=== PATIENT | male | born 1990 | race Two or more races ===

== ENCOUNTER 2019-06-03 13:01 | Emergency (ER) | payer MEDICAID ==
[~2019-06-03] VITALS: Ht 180.3 cm; Wt 68.0 kg
[2019-06-03 13:58] LABS: BASOPHILS % 0.5 % (0.0-2.0); EOSINOPHILS % 0.1 % (0.0-5.0); HEMATOCRIT. 27.9 % (42.0-52.0); LYMPHOCYTES % 20.7 % (20.0-50.0); MEAN CORPUSCULAR HEMOGLOBIN 35.9 pg (28.0-32.0); MEAN CORPUSCULAR VOLUME 100.8 fL (80.0-94.0); MEAN PLATELET VOLUME 8.6 fl (7.4-10.4); MONOCYTES % 5.5 % (2.0-8.0); NEUTROPHILS % 73.2 % (40.0-76.0); PLATELET 78 x1000/uL (130-400); RED BLOOD CELL COUNT 2.77 mill/uL (4.7-6.1); RED CELL DISTRIBUTION WIDTH 15.4 % (11.6-14.6)
[2019-06-03 14:02] LABS: CHLORIDE 97 mEq/L (98-107)
[2019-06-03 14:06] LABS: ETHANOL BLOOD < 10 mg/dL
[2019-06-03 15:03] LABS: CLARITY URINE CLEAR (CLEAR); COLOR URINE DARK YELLOW (YELLOW); KETONES URINE TRACE (NEGATIVE); LEUKOCYTE ESTERASE URINE TRACE (NEGATIVE); NITRITE URINE POSITIVE (NEGATIVE); OCCULT BLOOD URINE NEGATIVE (NEGATIVE); PH URINE 6.5 (4.5-8.0); PROTEIN URINE 1+ (NEGATIVE); SPECIFIC GRAVITY URINE 1.023 (1.005-1.030)
[2019-06-03 15:37] LABS: *BARBITURATES SCREEN URINE NEGATIVE (NEGATIVE); *BENZODIAZEPINES SCREEN URINE NEGATIVE (NEGATIVE)
[2019-06-03 15:38] LABS: *AMPHETAMINES SCREEN URINE NEGATIVE (NEGATIVE); *COCAINE SCREEN URINE NEGATIVE (NEGATIVE); METHADONE URINE SCREEN NEGATIVE (NEGATIVE); OPIATES URINE SCREEN NEGATIVE (NEGATIVE); PHENCYCLIDINE URINE SCREEN NEGATIVE (NEGATIVE)
[2019-06-03 15:44] LABS: CANNABINOID URINE SCREEN NEGATIVE (NEGATIVE)
[2019-06-03] MEDS ORDERED: CHLORDIAZEPOXIDE 25MG CAPSULE PO ONE (16:45)
[2019-06-03 17:00] VITALS: BP 140/90
== END 2019-06-03 17:15 | disposition home or self-care (01) ==
LOC: ER 13:01
DX: G40.909 Epilepsy, unspecified, not intractable, without status epilepticus (principal)
CPT/HCPCS: 36415; 70450; 80053; 80305; 80320; 81003; 85025; 99284; Z7610; G0480

== ENCOUNTER 2019-06-03 17:39 | Emergency (ER) | payer MEDICAID ==
[~2019-06-03] VITALS: Ht 170.2 cm; Wt 68.0 kg
[2019-06-03 17:45] VITALS: BP 136/100
[2019-06-03] MEDS ORDERED: SODIUM CHLORIDE 0.9% 1,000 ML IV ONE (17:54)
[2019-06-03] MEDS ORDERED: LEVETIRACETAM 1000MG/100ML 100 ML IV ONE (18:00)
[2019-06-03] MEDS ORDERED: LORAZEPAM 2MG/ML CPJ IV ONE (18:15)
[2019-06-03] MEDS ORDERED: CEFTRIAXONE 1 G PREMIX 50 ML IV ONE (18:15)
[2019-06-03 19:27] LABS: BASOPHILS % 0.5 % (0.0-2.0); EOSINOPHILS % 0.1 % (0.0-5.0); HEMATOCRIT. 28.2 % (42.0-52.0); HEMOGLOBIN. 9.9 g/dL (14.0-18.0); LYMPHOCYTES % 13.8 % (20.0-50.0); MEAN CORPUSCULAR VOLUME 102.4 fL (80.0-94.0); MEAN PLATELET VOLUME 8.3 fl (7.4-10.4); MONOCYTES % 5.3 % (2.0-8.0); NEUTROPHILS % 80.3 % (40.0-76.0); PLATELET 66 x1000/uL (130-400); RED BLOOD CELL COUNT 2.75 mill/uL (4.7-6.1); RED CELL DISTRIBUTION WIDTH 15.2 % (11.6-14.6)
[2019-06-03 19:31] LABS: CHLORIDE 98 mEq/L (98-107)
[2019-06-03 19:36] LABS: ETHANOL BLOOD < 10 mg/dL
[2019-06-03 19:40] LABS: CREATINE KINASE 191 IU/L (39-308)
[2019-06-03] MEDS ORDERED: POTASSIUM CHLORIDE 20MEQ TABLET SR PO ONE (20:00)
== END 2019-06-03 22:31 | disposition left against medical advice (07) ==
LOC: ER 17:39 → EDBEDREQ 19:11 → EDBEDREQTM 19:11 → ENRESERV 19:52 → CANRESERV 19:52 → ER 22:31 → CANBEDREQ 22:41
DX: R56.9 Unspecified convulsions (principal); F10.239 Alcohol dependence with withdrawal, unspecified; E87.8 Other disorders of electrolyte and fluid balance, not elsewhere classified; K85.90 Acute pancreatitis without necrosis or infection, unspecified; D64.9 Anemia, unspecified; Y90.0 Blood alcohol level of less than 20 mg/100 ml
CPT/HCPCS: 36415; 80053; 80320; 82550; 83690; 85025; 96365; 96375; 99283; J0696; J1953; J2060; J7030; G0480

== ENCOUNTER 2020-08-26 19:28 | Emergency (ER) | payer MEDICAID ==
[~2020-08-26] VITALS: Ht 172.7 cm; Wt 122.0 kg
[2020-08-26] MEDS ORDERED: ONDANSETRON 4MG ODT PO STA (20:00)
[2020-08-26 22:05] LABS: CHLORIDE 103 mEq/L (98-107)
[2020-08-26 22:25] LABS: ETHANOL BLOOD 442 mg/dL
[2020-08-26 22:35] VITALS: BP 128/87
== END 2020-08-26 23:00 | disposition left against medical advice (07) ==
LOC: ER 19:28
DX: F10.229 Alcohol dependence with intoxication, unspecified (principal); Y90.8 Blood alcohol level of 240 mg/100 ml or more; R74.01 Elevation of levels of liver transaminase levels; R00.0 Tachycardia, unspecified
CPT/HCPCS: 36415; 80053; 80320; 84484; 93005; 99284; Q0162; G0480